=== PATIENT | female | born 1960 | race Caucasian/White ===

== ENCOUNTER 2018-07-24 02:02 | Emergency (ER) | payer BC ==
[2018-07-24] MEDS ORDERED: MORPHINE SULFATE INJ 10 MG/ML VIAL IV ONE (02:10)
[2018-07-24] MEDS ORDERED: LACTATED RINGERS 1,000 ML IVS ONE (02:10)
[2018-07-24] MEDS ORDERED: PROCHLORPERAZINE INJ 10 MG/2 ML VIAL IV ONE (02:10)
--- NOTE | 2018-07-24 02:10 | ED.PDOC ---
History of Present Illness - General Chief Complaint: GI Problem Stated Complaint: abdominal pain Time Seen by Provider: 07/24/18 02:09 Information Source: patient Exam Limitations: no limitations - History of Present Illness Initial Comments: Anita Strickland 58 y/o female came to ER with onset of sharp pains that goes around her upper abdomen all the way to her back at about 9 pm tonight which gradually got worse followed by multiple episodes of vomiting.Had same symptoms 2 years ago and had HIDA scan was told she had small gallbladder.Had ate supper at 5 pm;denies alcohol intake.Had N/V/D a week ago but got better.No hematuria,or constipation. Abdominal Pain Onset Location: other - upper abdomen Pain Radiation: back Quality: intermittent, sharpness Timing/Duration: 4-6 hours Improving Factors: rest Worsening Factors: nothing Associated Symptoms: nausea/vomiting Review of Systems - Review of Systems Constitutional: States: no symptoms reported EENTM: States: no symptoms reported Respiratory: States: no symptoms reported Cardiology: States: no symptoms reported Gastrointestinal/Abdominal: States: see HPI Genitourinary: States: no symptoms reported Musculoskeletal: States: no symptoms reported Skin: States: no symptoms reported Neurological: States: no symptoms reported All other Systems: Reviewed and Negative, No Change from Baseline Past Medical History (General) - Patient Medical History Hx Seizures: No Hx Cardiac Disorders: No Hx Hypertension: No Surgical History: other - c- sections - Social History Hx Tobacco Use: No Hx Alcohol Use: No Hx Substance Use: No Hx Depression: No Feels Threatened In Home Enviroment: No Hx Physical Abuse: No Hx Emotional Abuse: No - Female History Patient is a Female of Child Bearing Age (10 -59 yrs old): Yes Patient : No Family Medical History - Family History Father Hx Family Diabetes: Yes - dad Mother Family History: Unknown Living Status: Unknown Physical Exam - Physical Exam General Appearance: Alert, Anxious, No apparent distress Eyes, Ears, Nose, Throat Exam: normal ENT inspection Neck: non-tender, supple, normal inspection Respiratory: lungs clear, normal breath sounds Cardiovascular/Chest: normal peripheral pulses, regular rate, rhythm, no murmur Peripheral Pulses: No deficit Gastrointestinal/Abdominal: normal bowel sounds, soft, no organomegaly, tenderness - upper abdomen no peritoneal signs Back Exam: no CVA tenderness, no vertebral tenderness Extremity: normal inspection, no pedal edema, no calf tenderness Neurologic: alert, oriented x 3 Skin Exam: normal color, warm/dry Progress - Progress Progress: 07/24/18 02:39 Vital Signs - 8 hr 07/24/18 07/24/18 02:05 02:06 Temperature 97.2 F L Pulse Rate [ 71 monitor] Respiratory 20 20 Rate Blood Pressure 145/70 [Left Arm] O2 Sat by Pulse 98 Oximetry - Results/Orders Results/Orders: 07/24/18 02:10 IV Care:Saline Lock per Protoc QSHIFT 07/24/18 02:57 Urine Culture Stat Laboratory Results - last 24 hr 07/24/18 07/24/18 07/24/18 02:10 02:34 02:57 WBC 6.1 RBC 4.53 Hgb 12.9 Hct 39.1 MCV 86.4 MCH 28.6 MCHC 33.1 RDW 14.0 Plt Count 222 MPV 7.9 Absolute Neuts (auto) 3.70 Absolute Lymphs (auto) 1.70 Absolute Monos (auto) 0.50 Absolute Eos (auto) 0.20 Absolute Basos (auto) 0.00 Neutrophils % 60.4 Lymphocytes % 28.4 Monocytes % 7.4 Eosinophils % 3.1 Basophils % 0.7 PT 9.6 INR 0.96 PTT (SP) 24.5 Sodium 142 Potassium 3.8 Chloride 107 Carbon Dioxide 22 Anion Gap 16.8 BUN 22 H Creatinine 0.75 BUN/Creatinine Ratio 29.3 H Random Glucose 115 H Serum Osmolality 287.4 Calcium 9.0 Magnesium 1.9 Total Bilirubin 0.3 Direct Bilirubin < 0.1 Indirect Bilirubin 0.2 AST 31 ALT 29 Alkaline Phosphatase 48 Creatine Kinase 49 CK-MB (CK-2) 2.5 CK-MB (CK-2) % Not Reportable Troponin I < 0.02 Serum Total Protein 6.7 Albumin 3.8 Lipase 52 H Urine Color Yellow Urine Appearance Clear Urine pH 5.0 Ur Specific [place] >= 1.030 Urine Protein Negative Urine Glucose (UA) Negative Urine Ketones 80 H Urine Blood Negative Urine Nitrite Negative Urine Bilirubin Negative Urine Urobilinogen 0.2 Ur Leukocyte Esterase Small H Urine RBC 1-3 Urine WBC 3-5 H Ur Epithelial Cells 1-3 Urine Bacteria 0 Urine Opiates Screen Positive H Urine Barbiturates Negative Ur Phencyclidine Scrn Negative U Amphetamin/Meth Scrn Negative U Benzodiazepines Scrn Negative U Cocaine Metab Screen Negative U Cannabinoids Screen Negative Discuss test result with patient and son - EKG/XRAY/CT CT Ordered: Yes - abd/p distended galbladder;no gallstone rest of abdominal organs within nor Departure - Departure Clinical Impression: Abdominal pain Qualifiers: Abdominal location: upper abdomen, unspecified Qualified Code(s): R10.10 - Upper abdominal pain, unspecified Time of Disposition: 04:02 Disposition: Discharge to Home or Self Care Condition: Good Departure Forms: ED Discharge - Pt. Copy, Patient Portal Self Enrollment Instructions: [place] Diet Diet: bland diet, other - Avoid greasy spicy foods until better Additional Instructions: Return to Emergency Room as needed;Follow with primary Md 26 July 2018 for recheck;Take over the counter Ranitidine(Zantac) 2 tablets am/pm for 2 weeks
[2018-07-24 02:13] VITALS: TEMP 97.2
--- NOTE | 2018-07-24 03:31 | CT ---
EXAM: CT Abdomen and Pelvis Without Intravenous Contrast CLINICAL HISTORY: The patient is 58 years old and is Female; abdominal pain upper TECHNIQUE: Axial computed tomography images of the abdomen and pelvis without intravenous contrast. Sagittal and coronal reformatted images were created and reviewed. This CT exam was performed using one or more of the following dose reduction techniques: automated exposure control, adjustment of the mA and/or kV according to patient size, and/or use of iterative reconstruction technique. COMPARISON: No relevant prior studies available. FINDINGS: LUNG BASES: Unremarkable. No mass. No consolidation. ABDOMEN: LIVER: Homogeneous without focal mass. GALLBLADDER AND BILE DUCTS: The gallbladder is significantly distended. No calcified gallstones or ductal dilatation is seen. PANCREAS: Unremarkable. No ductal dilation. SPLEEN: Unremarkable. ADRENALS: Unremarkable. No mass. KIDNEYS AND URETERS: No obstructing stones. No hydronephrosis. STOMACH AND BOWEL: The stomach is minimally distended. The small bowel is normal in caliber. Stool is present throughout the colon. Scattered colonic diverticula are noted without surrounding inflammation. There is no bowel obstruction. PELVIS: APPENDIX: The appendix is normal in caliber without surrounding inflammation. BLADDER: Unremarkable. No stones. REPRODUCTIVE: Unremarkable as visualized. ABDOMEN and PELVIS: INTRAPERITONEAL SPACE: Unremarkable. No free air. No significant fluid collection. BONES/JOINTS: Mild multilevel degenerative change of the spine is present. SOFT TISSUES: The soft tissues are normal. VASCULATURE: Unremarkable. No abdominal aortic aneurysm. LYMPH NODES: Unremarkable. No enlarged lymph nodes. IMPRESSION: Significantly distended gallbladder. No calcified gallstones or ductal dilatation. If there is clinical concern for acute gallbladder pathology, findings could be further evaluated with ultrasound or HIDA scan. Electronically signed by: Georgina Palma MD 07/24/2018 3:28 AM CDT
[2018-07-24 04:04] VITALS: BP 126/58; O2SAT 95
[2018-07-24] MEDS ORDERED: PROMETHAZINE TAB (ER DISP) 25 MG TAB PO ONE (04:06)
[2018-07-24] MEDS ORDERED: HYDROCOD/APAP 10/325 (ER DISP) # 3 tablets PO ONE (04:06)
== END 2018-07-24 04:14 | disposition home or self-care (01) ==
LOC: ER 02:02
DX: R10.10 Upper abdominal pain, unspecified (principal); R11.2 Nausea with vomiting, unspecified
CPT/HCPCS: 36415; 74176; 80048; 80076; 80307; 81001; 82550; 82553; 83690; 84484; 85025; 85610; 85730; J0780; J2270; J7120; Q0169